=== PATIENT | female | born 1975 | race Hispanic/Latino ===

== ENCOUNTER 2017-02-27 14:45 | Emergency (ER) | payer OTHER, SELFPAY ==
--- NOTE | 2017-02-27 15:36 | RAD ---
LEFT ELBOW FOUR VIEWS: Date: 02-27-17 Comparison: None. History: Fall, struck posterior elbow on a metal bar. FINDINGS: Lateral imaging demonstrates no elbow joint effusion. There is mild enthesophyte formation at the ins ertions of the triceps tendon. No fracture or dislocation is evident. IMPRESSION: No displaced fracture or evidence of dislocation. POS: [facility]
== END 2017-02-27 15:42 | disposition home or self-care (01) ==
LOC: SCSER 14:45
DX: S50.02XA Contusion of left elbow, initial encounter (principal); W22.8XXA Striking against or struck by other objects, initial encounter

== ENCOUNTER 2017-05-28 15:17 | Outpatient (CLI) | payer BC | END 2017-05-28 15:18 | disposition home or self-care (01) | LOC: BICMAMMO 15:17 | PROVIDERS: ATTEND Student in an Organized Health Care Education/Training Program | DX: Z12.31 Encounter for screening mammogram for malignant neoplasm of breast (principal) | CPT/HCPCS: 77063; 77067 ==

== ENCOUNTER 2017-06-28 12:00 | Observation (INO) | payer BC, OTHER, SELFPAY ==
[2017-06-28 12:54] LABS: Hemoglobin 13.1 g/dL (12.0-16.0); MDiff Complete? YES; Mean Corpuscular HGB CONC 33.5 g/dL (32.0-36.0); Mean Corpuscular Hemoglobin 28.3 pg (27.0-31.0); Mean Corpuscular Volume 84.6 fl (81.0-99.0); Mean Platelet Volume 7.5 fL (7.4-10.4); Platelet Count 296 thou/uL (130-400); RBC Distribution Width 12.1 % (11.5-14.5); Red Blood Cell (RBC) Count 4.63 mill/uL (4.20-5.40); White Blood Cell (WBC) Count 10.5 thou/uL (4.8-10.8)
[2017-06-28 12:55] LABS: Eosinophils 3 % (0-10); Lymphocytes 24 % (21-51); Monocytes 1 % (0-10); Neutrophil 72 % (42-75)
[2017-06-28 13:02] LABS: Troponin I Less than 0.010 ng/mL (< 0.028)
--- NOTE | 2017-06-28 13:04 | RAD ---
PORTABLE CHEST: HISTORY: Chest pain and hypertension. COMPARISON: 12/26/08 and 11/30/13 studies. FINDINGS: Heart size and mediastinum are within normal limits. Lungs appear clear of any infiltrative process. No signs of failure. IMPRESSION: No acute findings. POS: [facility]
[2017-06-28] MEDS ORDERED: Nitroglycerin 2% Ointment 1 INCH/1 GM Packet ONE (13:15)
[2017-06-28 13:28] LABS: BHCG - Serum Negative (NEGATIVE); Pregs Control Background? CLEAR/WHITE (CLR/WHITE); Pregs Control Bar Appear? YES (CONTROL BAR)
[2017-06-28 13:36] LABS: ALT (SGPT) 18 U/L (8-55); AST (SGOT) 16 U/L (5-34); Albumin 3.9 g/dL (3.5-5.0); Alkaline Phosphatase 139 U/L (40-150); Anion Gap 12 mmol/L (10-20); BUN (Urea Nitrogen) 10 mg/dL (7.0-18.7); Bilirubin, Total 0.6 mg/dL (0.2-1.2); CK (CPK) 119 U/L (29-168); Calc. Creatinine Clearance 0 mL/min (70-130); Calcium 9.1 mg/dL (7.8-10.44); Carbon Dioxide 25 mmol/L (22-29); Chloride 104 mmol/L (98-107); Estimated GFR-MDRD 88; Globulin 3.4 g/dL (2.4-3.5); Glucose 128 mg/dL (70-105); Lipase 18 U/L (8-78); Potassium 3.8 mmol/L (3.5-5.1); Protein, Total 7.3 g/dL (6.0-8.3); Sodium 137 mmol/L (136-145)
[2017-06-28] MEDS ORDERED: Ondansetron HCl/PF 4 MG/2 ML Vial IVP PRN (13:55)
[2017-06-28] MEDS ORDERED: Ondansetron ODT 4 MG TAB PO PRN (13:55)
[2017-06-28] MEDS ORDERED: HYDROcodone/Acetaminophen 5/325 mg Tablet PO PRN (13:55)
[2017-06-28] MEDS ORDERED: Acetaminophen 325 MG TAB PO PRN (13:55)
[2017-06-28] MEDS ORDERED: Enoxaparin Sodium 40 MG/0.4 ML SYRINGE SC SCH (15:00)
[2017-06-28 15:41] VITALS: BMI 48.9
[2017-06-28 16:21] LABS: Troponin I Less than 0.010 ng/mL (< 0.028)
[2017-06-28 19:29] LABS: CKMB 0.9 ng/mL (0-6.6); Troponin I Less than 0.010 ng/mL (< 0.028)
[2017-06-28] MEDS: Famotidine 20 MG TAB PO SCH (20:26)
[2017-06-28] MEDS: Metoprolol Tartrate 25 MG TAB PO SCH (20:26)
[2017-06-28] MEDS: Nitroglycerin 2% Ointment 1 INCH/1 GM Packet TOP SCH (20:27)
[2017-06-29] MEDS: Nitroglycerin 2% Ointment 1 INCH/1 GM Packet TOP SCH ×2 (05:09→13:30)
[2017-06-29 06:43] LABS: CKMB 0.8 ng/mL (0-6.6); Troponin I Less than 0.010 ng/mL (< 0.028)
[2017-06-29] MEDS: Famotidine 20 MG TAB PO SCH (08:18)
[2017-06-29] MEDS: Metoprolol Tartrate 25 MG TAB PO SCH (08:19)
[2017-06-29] MEDS ORDERED: Aspirin 325 MG TAB PO SCH (09:00)
[2017-06-29] MEDS ORDERED: Ketorolac Tromethamine 30 MG/ML VIAL IVP PRN (09:51)
[2017-06-29] MEDS ORDERED: Ketorolac Tromethamine 30 MG/ML VIAL IVP SCH (10:00)
[2017-06-29 12:12] VITALS: TEMP 98.1
[2017-06-29 15:55] VITALS: BP 141/70
--- NOTE | 2017-07-06 15:06 | EKG ---
Test Reason : CP Blood Pressure : / mmHG Vent. Rate : 080 BPM Atrial Rate : 080 BPM P-R Int : 144 ms QRS Dur : 078 ms QT Int : 372 ms P-R-T Axes : 032 027 026 degrees QTc Int : 429 ms Normal sinus rhythm Normal ECG Confirmed by JENNIFER DURBIN, ROSA ([id number]), industrial editor PUJA HANSEN ([id number]) on 07/06/2017 3:05:36 PM Referred By: Confirmed By:ROSA RODRIGUEZ MD
== END 2017-06-29 16:23 | disposition home or self-care (01) ==
LOC: ERS 12:00 → 2SW 14:02
PROVIDERS: ADMIT Internal Medicine Infectious Disease; ATTEND Internal Medicine Infectious Disease
DX: R07.89 Other chest pain (principal)
CPT/HCPCS: 36415; 71045; 80053; 82553; 83690; 83880; 84484; 84703; 85025; 85379; 93005; 93306; 96372; 96374; G0378; J1650; J1885; Q0162

== ENCOUNTER 2024-03-13 11:21 | Emergency (ER) | payer OTHER, SELFPAY ==
[2024-03-13 13:14] LABS: #Basophils 0.03 10x3/uL (0.0-0.2); %Basophils 0.3 % (0.0-1.0); %Eosinophils 4.7 % (0.0-10.0); %Lymphocytes 18.3 % (21.0-51.0); %Monocytes 4.9 % (0.0-10.0); %Neutrophils 71.6 % (42.0-75.0); Hematocrit 42.2 % (36.0-47.0); Hemoglobin 13.9 g/dL (12.0-16.0); Mean Corpuscular HGB CONC 32.9 g/dL (32.0-36.0); Mean Corpuscular Hemoglobin 26.8 pg (27.0-31.0); Mean Corpuscular Volume 81.5 fL (78.0-98.0); Mean Platelet Volume 10.7 fL (7.4-10.4); Platelet Count 332 10x3/uL (130-400); RBC Distribution Width 13.3 % (11.5-14.5); Red Blood Cell (RBC) Count 5.18 mill/uL (4.20-5.40)
[2024-03-13] MEDS ORDERED: Ketorolac Tromethamine 30 MG (1 mL) VIAL ONE (13:14)
[2024-03-13] MEDS ORDERED: Dexamethasone 10 MG/ML VIAL ONE (13:14)
[2024-03-13 13:41] LABS: ALT (SGPT) 47 U/L (Less than 34); AST (SGOT) 48 U/L (11-34); Albumin 3.7 g/dL (3.1-4.5); Alkaline Phosphatase 126 U/L (40-110); Anion Gap 12 mmol/L (10-20); BUN (Urea Nitrogen) 10 mg/dL (7.0-18.7); Bilirubin, Total 0.5 mg/dL (0.3-1.2); Calc. Creatinine Clearance 0 mL/min (70-130); Calcium 9.4 mg/dL (7.8-10.44); Carbon Dioxide 26 mmol/L (22-29); Chloride 102 mmol/L (98-107); Estimated GFR 98; Glucose 208 mg/dL (70-105); Lipase 10 U/L (8-78); Potassium 3.9 mmol/L (3.5-5.1); Protein, Total 7.7 g/dL (6.0-8.3); Sodium 136 mmol/L (136-145)
[2024-03-13 13:44] LABS: Troponin I Less than 0.010 ng/mL (< 0.028)
== END 2024-03-13 15:15 | disposition home or self-care (01) ==
LOC: ERS 11:21
DX: R07.81 Pleurodynia (principal); J18.9 Pneumonia, unspecified organism
CPT/HCPCS: 36415; 71045; 80053; 83690; 83880; 84484; 85025; 93005; 94760; 96372; J1100; J1885